=== PATIENT | female | born 1990 | race American Indian/Alaskan Native ===

== ENCOUNTER 2016-11-25 10:42 | Emergency (ER) | payer MEDICAID ==
[2016-11-25 11:38] LABS: Basophils % (Auto) 0.5 % (0.0-1.8); Eosinophils % (Auto) 0.2 % (0.0-4.3); Hematocrit 38.9 % (30.3-42.9); Hemoglobin 13.2 gm/dl (10.1-14.3); Mean Corpuscular HGB Conc 34 % (30-34); Mean Corpuscular Hemoglobin 32 pg (28-32); Mean Corpuscular Volume 94 fl (79-97); Platelet Count 232 K/mm3 (140-440); Red Blood Count 4.16 M/mm3 (3.65-5.03); White Blood Count 11.4 K/mm3 (4.5-11.0)
[2016-11-25 12:16] LABS: Alanine Aminotransferase 91 units/L (7-56); Albumin 3.8 g/dL (3.9-5); Albumin/Globulin Ratio 1.3 %; Alkaline Phosphatase 81 units/L (35-129); Blood Urea Nitrogen 6 mg/dL (7-17); Calcium 8.9 mg/dL (8.4-10.2); Carbon Dioxide 22 mmol/L (22-30); Glucose 90 mg/dL (65-100); Lipase 8 units/L (13-60); Total Protein 6.7 g/dL (6.3-8.2)
[2016-11-25 12:17] LABS: Anion Gap 19 mmol/L; Chloride 95.3 mmol/L (98-107); Potassium 4.3 mmol/L (3.6-5.0); Sodium 132 mmol/L (137-145)
[2016-11-25 15:06] LABS: Bilirubin,Urine Negative (Negative); Blood,Urine Small (Negative); Ketones,Urine Negative (Negative)
[2016-11-25 15:07] LABS: Bacteria,Urine 2+ /HPF (Negative); Leukocyte Esterase,Urine Negative (Negative); Mucus,Urine 2+ /HPF; Nitrite,Urine Negative (Negative); Protein,Urine <15 mg/dL mg/dL (Negative); Urobilinogen,Urine < 2.0 mg/dL (<2.0)
[2016-11-25] MEDS ORDERED: PEPCID IV ONE (19:27)
[2016-11-25] MEDS ORDERED: ZOFRAN IV ONE (19:27)
[2016-11-25] MEDS ORDERED: NACL 0.9% 1000 ML 1,000 ML IV ONE (19:27)
[2016-11-25] MEDS ORDERED: TORADOL IV ONE (19:27)
--- NOTE | 2016-11-25 19:42 | Emergency Department Report ---
HPI - General Chief Complaint: Abdominal Pain Time Seen by Provider: 11/25/16 19:21 - HPI HPI: Room 4 The patient is a 26-year-old female presenting with a chief complaint of abdominal pain. Patient states his symptoms began last night at approximately 02:00 with nausea and vomiting. Patient states that then developed epigastric abdominal pain that feels as though her stomach is "knotting up." The patient states the pain waxes and wanes. The patient admits to fever and chills but denies dysuria or hematuria. The patient gives her pain a score of 10/10 Location: Abdomen Duration: Constant since 02:00 Quality: "knotting up" Severity: 10/10 Modifying factors: [see above] Context: [see above] Mode of transportation: The patient drove herself to the emergency department and there are no visitors present. ED Past Medical Hx - Past Medical History Hx Asthma: Yes Additional medical history: Vaginal delivery x 2. History of PID - Surgical History Additional Surgical History: - Family History Family history: no significant - Social History Smoking Status: Current Every Day Smoker Substance Use Type: None (denies illicit drug use), Alcohol (occasional) - Medications Home Medications: Home Medications Medication Instructions Recorded Confirmed Last Taken Type Ibuprofen [Motrin] 800 mg PO Q8H PRN #30 tablet 12/22/14 11/25/16 11/24/16 Rx Famotidine [Pepcid] 20 mg PO BID #30 tablet 11/25/16 Unknown Rx HYDROcodone/APAP 5-325 [[place] 1 - 2 each PO Q6HR PRN #12 tablet 11/25/16 Unknown Rx 5/325] Promethazine [Phenergan TAB] 25 mg PO Q6HR PRN #20 tab 11/25/16 Unknown Rx Promethazine [Phenergan] 25 mg CA Q6HR PRN #5 supp.rect 11/25/16 Unknown Rx Sulfamethoxazole/Trimethoprim 1 each PO BID #20 tablet 11/25/16 Unknown Rx [Bactrim DS TAB] traMADol [Ultram 50 MG tab] 50 mg PO Q6H PRN 11/25/16 11/25/16 11/24/16 History ED Review of Systems ROS: Stated complaint: ABD PAIN Other details as noted in HPI Comment: All other systems reviewed and negative Constitutional: chills, fever Eyes: denies: eye pain, eye discharge, vision change ENT: denies: ear pain, throat pain Respiratory: denies: cough, shortness of breath, wheezing Cardiovascular: denies: chest pain, palpitations Endocrine: no symptoms reported Gastrointestinal: abdominal pain, nausea, vomiting. denies: diarrhea Genitourinary: denies: dysuria, hematuria Musculoskeletal: denies: back pain, joint swelling, arthralgia Skin: denies: rash, lesions Neurological: denies: headache, weakness, paresthesias Psychiatric: denies: anxiety, depression Hematological/Lymphatic: denies: easy bleeding, easy bruising Physical Exam - Physical Exam Vital Signs: Vital Signs 11/25/16 10:56 Temperature 100.6 F H Pulse Rate 101 H Blood Pressure 113/68 O2 Sat by Pulse 100 Oximetry Physical Exam: GENERAL: The patient is well-developed well-nourished female sleeping on stretcher not appearing to be in acute distress. [] HEENT: Normocephalic. Atraumatic. Extraocular motions are intact. Patient has moist mucous membranes. NECK: Supple. Trachea midline CHEST/LUNGS: Clear to auscultation. There is no respiratory distress noted. HEART/CARDIOVASCULAR: Regular. There is no tachycardia. There is no gallop rub or murmur. ABDOMEN: Abdomen is soft, with mild discomfort to palpation epigastric region. Absent Robbins sign. Patient has normal bowel sounds. There is no abdominal distention. SKIN: There is no rash. There is no edema. There is no diaphoresis. NEURO: The patient is awake, alert, and oriented. The patient is cooperative. The patient has normal speech MUSCULOSKELETAL: There is no evidence of acute injury. ED Course Vital Signs 11/25/16 10:56 Temperature 100.6 F H Pulse Rate 101 H Blood Pressure 113/68 O2 Sat by Pulse 100 Oximetry ED Medical Decision Making - Lab Data Result diagrams: 11/25/16 11:28 11/25/16 11:28 Laboratory Tests 11/25/16 11/25/16 11/25/16 11:28 11:28 14:21 WBC 11.4 H RBC 4.16 Hgb 13.2 Hct 38.9 MCV 94 MCH 32 MCHC 34 RDW 13.0 L Plt Count 232 Lymph % (Auto) 7.9 L [place] % (Auto) 9.5 H Eos % (Auto) 0.2 Baso % (Auto) 0.5 Lymph # 0.9 L [place] # 1.1 H Eos # 0.0 Baso # 0.1 Seg Neutrophils % 81.9 H Seg Neutrophils # 9.3 H Sodium 132 L Potassium 4.3 Chloride 95.3 L Carbon Dioxide 22 Anion Gap 19 BUN 6 L Creatinine 0.6 L Estimated GFR > 60 BUN/Creatinine Ratio 10.00 Glucose 90 Calcium 8.9 Total Bilirubin 0.50 AST 49 H ALT 91 H Alkaline Phosphatase 81 Total Protein 6.7 Albumin 3.8 L Albumin/Globulin Ratio 1.3 Lipase 8 L Urine Color Yellow Urine Turbidity Clear Urine pH 6.0 Ur Specific [place] 1.016 Urine Protein <15 mg/dl Urine Glucose (UA) Negative Urine Ketones Negative Urine Blood Small A Urine Nitrite Negative Urine Bilirubin Negative Urine Urobilinogen < 2.0 Ur Leukocyte Esterase Negative Urine WBC (Auto) 8.0 H Urine RBC (Auto) 7.0 U Epithel Cells (Auto) 1.0 Urine Bacteria (Auto) 2+ Ur Transition Epith Cell 1 Hyaline Casts 1 Urine Mucus 2+ Urine HCG, Qual Negative - Radiology Data Radiology results: report reviewed (CT abdomen and pelvis), image reviewed (CT abdomen and pelvis) CT abdomen and pelvis (read by radiologist)-normal-appearing appendix. The wall of the bladder appears thickened. This may be exaggerated by nondistention. Possibility of cystitis not excluded. Small amount of low density free fluid is seen in the dependent portion of the pelvis. This is a nonspecific finding. It may be physiologic. Diastasis of the rectus abdominal musculature as noted this is more pronounced than in the prior study - Differential Diagnosis pancreatitis, gastritis, peptic ulcer disease, cholecystitis, appendicitis, Critical care attestation.: If time is entered above; I have spent that time in minutes in the direct care of this critically ill patient, excluding procedure time. ED Disposition Clinical Impression: Acute abdominal pain, Fever, Nausea and vomiting Disposition: DISCHARGED TO HOME OR SELFCARE Is pt being admited?: No Does the pt Need Aspirin: No Condition: Stable Instructions: Abdominal Pain (ED) Additional Instructions: Return to the emergency department immediately should you develop worsening symptoms, fever, inability to tolerate food or liquid or any other concerns. Prescriptions: Famotidine [Pepcid] 20 mg PO BID #30 tablet HYDROcodone/APAP 5-325 [[place] 5/325] 1 - 2 each PO Q6HR PRN #12 tablet PRN Reason: Pain Promethazine [Phenergan TAB] 25 mg PO Q6HR PRN #20 tab PRN Reason: Nausea Promethazine [Phenergan] 25 mg CA Q6HR PRN #5 supp.rect PRN Reason: Vomiting Sulfamethoxazole/Trimethoprim [Bactrim DS TAB] 1 each PO BID #20 tablet Referrals: QUE WANG MD [Primary Care Provider] - 3-5 Days WIN FARLEY MD [Staff Physician] - 3-5 Days (Dr. Farley is a tax processor. Please follow up with him for further evaluation if your symptoms persist) Time of Disposition: 21:24
[2016-11-25 19:50] VITALS: BP 116/61
[2016-11-25] MEDS ORDERED: NACL ONE (19:59)
--- NOTE | 2016-11-25 21:10 | Cat Scan Report ---
FINAL REPORT EXAM: CT ABDOMEN PELVIS W CON HISTORY: periumbilical abdominal pain TECHNIQUE: Serial axial images through the abdomen and pelvis with coronal and sagittal reconstruction. Intravenous administration 100 milliliters Omnipaque 300 PRIORS: CT scan from 12/22/2014 FINDINGS: There is atelectasis in the inferior aspect of the left upper lobe. No pleural effusion is seen. The liver, gallbladder, pancreas, spleen and adrenal glands appear within normal limits. Kidneys appear normal. Aorta is normal in caliber. Bladder is decompressed. The wall of the bladder appears to be thickened. No gross abnormality is seen in the uterus or adnexa. Small amount of low-density free fluid is seen in the dependent portion of the pelvis. Appendix appears normal. No gross bowel abnormality is identified. There is diastasis of the rectus abdominus musculature. This is more pronounced than in the prior study. No acute osseous abnormality is identified. IMPRESSION: 1. Normal-appearing appendix. 2. The wall of the bladder appears thickened. This may be exaggerated by nondistention. Possibility of cystitis is not excluded. 3. Small amount of low-density free fluid is seen in the dependent portion of the pelvis. This is a nonspecific finding. It may be physiologic. 4. Diastasis of the rectus abdominus musculature is noted. This is more pronounced than in the prior study.
[2016-11-25] MEDS ORDERED: SUBLIMAZE IV ONE (22:04)
== END 2016-11-25 22:44 | disposition home or self-care (01) ==
LOC: ED 10:42
DX: R10.13 Epigastric pain (principal); R11.2 Nausea with vomiting, unspecified; R50.9 Fever, unspecified; J45.909 Unspecified asthma, uncomplicated; F17.200 Nicotine dependence, unspecified, uncomplicated
CPT/HCPCS: 36415; 74177; 80053; 81001; 81025; 83690; 85025; 96361; 96374; 96375; 99284; J1885; J2405; J3010; J7030; Q9967

== ENCOUNTER 2020-05-21 15:17 | Observation (INO) | payer MEDICAID | END 2020-05-21 16:17 | disposition other institution (70) | LOC: LD 15:17 | PROVIDERS: ADMIT Obstetrics & Gynecology; ATTEND Obstetrics & Gynecology | DX: Z34.80 Encounter for supervision of other normal pregnancy, unspecified trimester (principal); Z3A.00 Weeks of gestation of pregnancy not specified | CPT/HCPCS: G0378; G0379 ==